=== PATIENT | male | born 1985 | race African-American/Black ===

== ENCOUNTER 2020-04-15 18:26 | Emergency (ER) | payer SELFPAY ==
[~2020-04-15] VITALS: Ht 167.6 cm; Wt 129.0 kg
[~2020-04-15 18:26] MED LIST: CLEOCIN HCL150 MG PO; PREDNISONE20 MG PO
[2020-04-15] MEDS ORDERED: FAMOTIDINE 20 MG TAB PO ONE (19:00)
[2020-04-15] MEDS ORDERED: PREDNISONE 20 MG TAB PO ONE (19:00)
[2020-04-15] MEDS ORDERED: FAMOTIDINE 20 MG TAB ONE (19:11)
--- OUTSIDE RECORDS SUMMARY | 2020-04-15 19:17 | XMS REPORT | Continuity of Care Document ---
Author Author [facility] t Organization [facility] Address [address] [place] [address] [address] [place] [address] Phone Unavailable Care Team Providers Care Medical Records Auditor Name Role Phone NO, PCP PCP Unavailable Minh Graves Payers Payer Name Policy Type Policy Number Effective Date Expiration Date S ource Problems Condition Name Condition Details Condition Category Status Onset Date Resolution Date Last Treatment Date Treating Clinician Comments Source DIARRHEA DIAR JENI Active 02/17/2016 [facility] Active 2016-02-17 00:00:00 2016-05-11 16:32:00 [facility] Discharge Diagnosis: Diarrhea Discharge Diagnosis: Diarrhea 02/23/2016 02/26/2016 [facility] Problem 02-22 05:00:00 2016-02-26 00:26:26 2016-02-26 00:26:26 [facility] Discharge Diagnosis: Nausea & vomiting Discharge Diagnosis: Nausea & vomiting 02/23/2016 02/26/2016 [facility] 2016-02-23 05:00:00 2016-02-26 00:26:26 2016-02-26 00:26:26 [facility] Allergies, Adverse Reactions, Alerts Allergy Name Allergy Type Status Severity Reaction(s) Onset Date Inacti ve Date Treating Clinician Comments Source Penicillin Allergy to Substance Active 2019-08-18 00:00:00 [facility] No Known Allergies DA Active U 2018-11-01 00:00:00 [facility] penicillins penicillins Active [facility] Social History Smoking Status Start Date Stop Date Source Social History [facility] Medications Ordered Medication Name Filled Medication Name Start Date Stop Da te Current Medication? Ordering Clinician Indication Dosage Frequency Signature (SIG) Comments Components Source Clindamycin Hcl (Cleocin Hcl) 150 Mg Capsule Clindamyc in Hcl (Cleocin Hcl) 150 Mg Capsule 2019-08-18 00:00:00 Yes Alex Santoyo Md 300 Three Times A Day [facility] Prednisone 20 Mg Tab Prednisone 20 Mg Tab 2019-08-18 00:00:00 Yes Alex Santoyo Md 20 Daily [facility] Ranitidine 150 MG Oral Tablet [Zantac] 2016-02-23 17:02:00 Yes 150 mg = 1 tab, PO, BID, # 28 tab, 0 Refill(s) [facility] Ondansetron 4 MG Disintegrating Tablet [Zofran] 2016-02-23 17:02 :00 Yes 4 mg = 1 tab, PO, BID, PRN N ausea and Vomiting, Dissolve tab under tongue, X 5 day, # 10 tab, 0 Refill(s) [facility] kenneth Zofran ODT 2016-02-23 16:08:00 No Notes: (S dionicio as: Zofran ODT) [facility] Vital Signs Vital Name Observation Time Observation Value Comments Source Systolic (mm Hg) 2016-02-23 16:00:00 Beto Taveras Diastolic (mm Hg) 2016-02-23 16:00:00 [facility] thual Nitin Respitory Rate 2016-02-23 16:00:00 [facility] Heart Rate 2016-02-23 16:00:00 [facility] BMI Calculated 2016-02-23 16:00:00 Chan Link Height 2016-02-23 16:00:00 167.64 cm [facility] Temperature Oral (F) 2016-02-23 16:00:00 97.8 F [facility] Weight 2016-02-23 16:00:00 [facility] Procedures This patient has no known procedures. Encounters Start Date/Time End Date/Time Encounter Type Admission Type Attendi [facility] Care Department Encounter ID Source 2019-08-18 17:42:00 2019-08-18 18:52:[address] [facility] [id number] [facility] 2016-02-23 10:45:00 2016-02-23 12:09:00 Outpatient Minh Graves [facility] [id number] Results Test Description Test Time Test Comments Results Result Comments Source CHEM PANEL 2016-02-23 16:32:00 [facility] [place] [facility] 2016-02-23 16:32:00 [facility] [place] CHEM [facility] 2016-02-23 16:32:00 92 [facility] Nitin CHEM PANEL 2016-02-23 16:32:00 118 [facility] Nitin CHEM PANEL 2016-02-23 16:32:00 8.8 [facility] [place] CHEM PANEL 2016-02-23 16:32:00 3.8 [facility] Nitin CHEM PANEL 2016-02-23 16:32:00 141 [facility] [place] CHEM PANEL 2016-02-23 16:32:00 9.0 [facility] Nitin CHEM PANEL 2016-02-23 16:32:00 28 [facility] Nitin CHEM PANEL 2016-02-23 16:32:00 108 [facility] shayla Nitin
--- OUTSIDE RECORDS SUMMARY | 2020-04-15 19:17 | XMS REPORT | Continuity of Care Document ---
Author Author Gayla Taveras [facility] [employer] Address Unknown Phone Unavailable Care Team Providers Care Physicist [place] Name Role Phone [employer] Unavailable Un available Problems Problem Status Onset Date Classification Date Reported Comments Source Discharge Diagnosis: Diarrhea 02/23/2016 02/26/[address] [facility] Discharge Diagnosis: Nausea & vomiting 02/23/2016 02/26/[address] [facility] DIARRHEA Active 02/17/[address] [facility] Medications Medication Details Route Status Patient Instructions Ordering Provider Order Date Source Ranitidine 150 MG Oral Tablet [Zantac] 150 mg = 1 tab, PO, BID, # 28 tab, 0 Refill(s) Active 02/23/[address] [facility] Ondansetron 4 MG Disintegrating Tablet [Zofran] 4 mg = 1 tab, PO, BID, PRN Nausea and Vomiting, Dissolve tab under tongue, X 5 day, # 10 tab, 0 Refill(s) Active 02/23/[address] [facility] Zofran ODT Notes: (Same as: Zo wil ODT) Inactive 02/23/[address] [facility] Allergies, Adverse Reactions, Alerts Substance Category Reaction Severity Reaction type Status Date Reported Comments Source penicillins Assertion Drug allergy Active [facility] Immunizations No Data Provided for This Section Results Order Name Results Value Reference Range Date Interpretation Comments Source CHEM PANEL Creatinine Lvl 0.99 0.50 - 1.40 02/23/[address] [facility] CHEM PANEL BUN 13 7 - 22 02/23/[address] [facility] CHEM PANEL Glucose Lvl 92 70 - 99 02/23/[address] [facility] CHEM PANEL eGFR 118 02/23/2016 Result Comment: The eGFR is calculated using the CKD-EPI formula. In most young, healthy individuals the eGFR will be >90 mL/min/1.73m2. The eGFR declines with age. An eGFR of 60-89 may be normal in some populations, particularly the elderly, for whom the CKD-EPI formula has not been extensively validated. Use of the eGFR is not recommended in the following populations:

Individuals with unstable creatinine concentrations, including patients and those with serious co-morbid conditions.

Patients with extremes in muscle mass or diet.

The data above are obtained from the National Kidney Disease Education Program (NKDEP) which additionally recommends that when the eGFR is used in patients with extremes of body mass index for purposes of drug dosing, the eGFR should be multiplied by the estimated BMI. [facility] CHEM PANEL AGAP 8.8 10.0 - 20.0 02/23/[address] [facility] CHEM PANEL Potassium Lvl 3.8 3.5 - 5.1 02/23/[address] [facility] CHEM PANEL Sodium Lvl 141 135 - 145 02/23/[address] [facility] CHEM PANEL Calcium Lvl 9.0 8.5 - 10.5 02/23/[address] [facility] CHEM PANEL CO2 28 24 - 32 02/23/[address] [facility] CHEM PANEL Chloride Lvl 108 95 - 109 02/23/[address] [facility] Pathology Reports No Data Provided for This Section Diagnostic Reports No Data Provided for This Section Consultation Notes No Data Provided for This Section Discharge Summaries No Data Provided for This Section History and Physicals No Data Provided for This Section Vital Signs Vital Sign Value Date Comments Source Systolic (mm Hg) 123 02/23/[address] [facility] Diastolic (mm Hg) 88 02/23/[address] [facility] Respitory Rate 18 02/23/[address] [facility] Heart Rate 77 02/23/[address] [facility] BMI Calculated 39.14 02/23/[address] [facility] Height 167.64 cm 02/23/[address] [facility] Temperature Oral (F) 97.8 F 02/23/[address] [facility] Weight 110 02/23/[address] [facility] Encounters Location Location Details Encounter Type Encounter Number Reason For Visit Attending Provider ADM Date DC Date Status Source [facility] Emergency [id number] Minh Graves 02/23/2016 02/23/[address] [facility] Procedures No Data Provided for This Section Assessment and Plan No Data Provided for This Section Plan of Care No Data Provided for This Section Social History Social History Date Source Social History TypeResponse Smoking Status Never smoker; Exposure to Tobacco Smoke None; Cigarette Smoking Last 365 Days No; Reg Smoking Cessation Counseling No 02/23/[address] [facility] Family History No Data Provided for This Section Advance Directives No Data Provided for This Section Functional Status No Data Provided for This Section
[2020-04-15] MEDS ORDERED: BENADRYL25 M1 PO (19:18)
[2020-04-15] MEDS ORDERED: PEPCID20 MG PO (19:18)
[2020-04-15] MEDS ORDERED: PREDNISONE20 MG PO (19:18)
--- NOTE | 2020-04-15 19:18 | Emergency Department Note ---
History of Present Illnes History of Present Illness Chief Complaint: itchy rash on scalp s/p eating pork History of Present Illness This is a 34 year old male. was doing well prior to this. 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 of benadryl service captain Historian: Patient Arrival Mode: Car Additional Treatment PATIENT SUPPORT ASSISTANT: benadryl 50mg 1800 History limited by: condition of the patient (normal) Coagulating Drying Supervisor Required: No Onset (how long ago): hour(s) (1) Location: see above Quality: itchy Radiation: Reports non-radiation Severity: moderate Onset quality: gradual Duration (how long): hour(s) (1) Timing of current episode: constant Progression: worsening Chronicity: new Context: Denies recent illness, Denies recent surgery, Denies recent immobilization, Denies recent travel, Denies trauma/injury, Denies new medications, Denies hx of DVT/PE, Denies non-compliance w/ medications Relieving factors: none Exacerbating factors: none Associated symptoms: Reports rash Treatments prior to arrival: none Past Medical/Family History Physician Review I have reviewed the patient's past medical and family history. Any updates have been documented here. Past Medical History Recent Fever: No Clinical Suspicion of Infectio: No New/Unexplained Change in Ment: No Past Medical History: None Past Surgical History: None Social History Smoking Cessation: Never Smoker Counseling Performed: No Alcohol Use: None Any Illegal Drug Use: No Physically hurt or threatened: No Other Last Tetanus: UNK Any Pre-Existing Lines (PICC,: No Review of Systems Review of Systems Constitutional: Reports no symptoms EENTM: Reports no symptoms Cardiovascular: Reports no symptoms Respiratory: Reports no symptoms Gastrointestinal: Reports no symptoms Genitourinary: Reports no symptoms Musculoskeletal: Reports no symptoms Integumentary: Reports as per HPI, Reports rash Neurological: Reports no symptoms Psychological: Reports no symptoms Endocrine: Reports no symptoms Hematological/Lymphatic: Reports no symptoms Review of other systems: All other systems negative Physical Exam Related Data Allergies: Coded Allergies: Penicillins (Verified Allergy, Unknown, 08/18/19) Triage Vital Signs Vital Signs Date Time Temp Pulse Resp B/P (MAP) Pulse Ox O2 Delivery O2 Flow Rate FiO2 04/15/20 18:40 98.5 73 18 116/91 100 Room Air Vital signs reviewed: Yes Physical Exam CONSTITUTIONAL Constitutional: Present well-developed, Present well-nourished HENT HENT: Present normocephalic, Present atraumatic, Present oropharynx clear/moist, Present nose normal HENT L/R: Present left ext ear normal, Present right ext ear normal EYES Eyes: Reports PERRL, Reports conjunctivae normal NECK Neck: Present ROM normal, Present supple PULMONARY Pulmonary: Present effort normal, Present breath sounds normal CARDIOVASCULAR Cardiovascular: Present regular rhythm, Present heart sounds normal, Present capillary refill normal, Present normal rate GASTROINTESTINAL Abdominal: Present soft, Present nontender, Present bowel sounds normal GENITOURINARY Genitourinary: Present exam deferred SKIN Skin: Present warm, Present dry, Present rash (scalp(hives)) MUSCULOSKELETAL Musculoskeletal: Present ROM normal NEUROLOGICAL Neurological: Present alert, Present oriented x 3, Present no gross motor or sensory deficits PSYCHOLOGICAL Psychological: Present mood/affect normal, Present judgement normal Assessment & Plan Medical Decision Making MDM allergic reaction Assessment & Plan Final Impression: (1) Allergic reaction Depart Disposition: HOME, SELF-CARE Last Vital Signs Date Time Temp Pulse Resp B/P (MAP) Pulse Ox O2 Delivery O2 Flow Rate FiO2 04/15/20 18:40 98.5 73 18 116/91 100 Room Air Home Meds Active Scripts Prednisone (PREDNISONE) 20 Mg Tab, 60 MG PO DAILY, #15 TAB take all 3 20mg pills at once(START TOMORROW EVENING) Prov:ADELA CRAWFORD 04/15/20 Famotidine (PEPCID) 20 Mg Tablet, 20 MG PO Q12H, #20 TAB Prov:ADELA CRAWFORD 04/15/20 Diphenhydramine Hcl (BENADRYL) 25 Mg Capsule, 50 MG PO Q6H PRN for ITCHING, #40 Prov:ADELA CRAWFORD 04/15/20 Prednisone (PREDNISONE) 20 Mg Tab, 20 MG PO DAILY, #6 TAB Prov:ZANDER SANDOVAL MD 08/18/19 Clindamycin Hcl (CLEOCIN HCL) 150 Mg Capsule, 300 MG PO TID, #42 CAP Prov:ZANDER SANDOVAL MD 08/18/19 Medications in the ED Famotidine 20 mg ONCE ONCE PO ; Start 04/15/20 at 19:00; Stop 04/15/20 at 19:01; Status UNV Prednisone 80 mg ONCE ONCE PO ; Start 04/15/20 at 19:00; Stop 04/15/20 at 19:01; Status UNV ADELA CRAWFORD Apr 15, 2020 19:18
== END 2020-04-15 19:55 | disposition home or self-care (01) ==
LOC: FSED 18:55
DX: R21 Rash and other nonspecific skin eruption (principal); T78.40XA Allergy, unspecified, initial encounter
CPT/HCPCS: 99283; J7512